=== PATIENT | male | born 1930 | race Caucasian/White ===

== ENCOUNTER 2020-02-14 09:13 | Outpatient (CLI) | payer MEDICARE, OTHER ==
--- NOTE | 2020-02-14 11:15 | ULT ---
BILATERAL RENAL ULTRASOUND COMPLETE: Date: 02/14/2020 HISTORY: Chronic kidney disease. FINDINGS: Left kidney measures 10.3 x 6.3 x 5.5 cm. Right kidney measures 10.2 x 5.3 x 4.9 cm. 1.6 x 2.4 x 2.6 cm diameter left renal cortical cyst. No renal hydronephrosis. Urinary bladder is unremarkable. IMPRESSION: 1. Left renal cyst. 2. No renal hydronephrosis. POS: OFF
== END 2020-02-14 09:14 | disposition home or self-care (01) ==
LOC: BICULT 09:13
PROVIDERS: ATTEND Internal Medicine Nephrology
DX: N18.4 Chronic kidney disease, stage 4 (severe) (principal); N28.1 Cyst of kidney, acquired
CPT/HCPCS: 76770